=== PATIENT | female | born 1945 ===

== ENCOUNTER → 2016-03-30 | Outpatient (CLI) | payer MEDICARE, BC ==
--- NOTE | 2016-03-30 11:09 | RADRPT ---
PROCEDURE: US Lower extremity Venous. CLINICAL INDICATION: Right leg pain TECHNIQUE: Multiple sonographic images of the right lower extremity deep venous system was obtaine d utilizing grayscale, color-flow, compressive sonography and doppler imaging with augmentation. Th e images were reviewed on a PACS workstation. COMPARISON: None. FINDINGS: There is normal compressibility and flow within the right common femoral, superficial femoral, poste rior tibial, peroneal and popliteal veins. The right great saphenous vein is patent. There is a 3.0 x 1.7 cm slightly complex fluid collection in the medial aspect of the knee, suspicio us for a liquefying hematoma. RPTAT: AA IMPRESSION: No sonographic evidence for deep venous thrombosis. Possible liquefying hematoma in the soft tissues of the medial aspect of the knee. .Peter Benitez MD, MD Date Time Electronically viewed and signed by .Peter Benitez MD, on 03/30/2016 11:09 .S/
== END | disposition home or self-care (01) ==
LOC: VAS 09:54
PROVIDERS: ATTEND Internal Medicine
DX: M79.604 Pain in right leg (principal); R22.41 Localized swelling, mass and lump, right lower limb
CPT/HCPCS: 93971